=== PATIENT | female | born 1980 | race Caucasian/White ===

== ENCOUNTER 2024-03-02 10:36 | Emergency (ER) | payer OTHER ==
[~2024-03-02] VITALS: Ht 167.6 cm; Wt 100.0 kg
[2024-03-02 11:13] VITALS: TEMP 98.3
[2024-03-02] MEDS ORDERED: LEVE10006 PO (11:22)
[2024-03-02] MEDS ORDERED: METO25 PO (11:22)
[2024-03-02] MEDS ORDERED: HYDR-4527 PO (11:22)
[2024-03-02] MEDS ORDERED: LEVO75 PO (11:22)
[2024-03-02] MEDS ORDERED: FLUC200T85 PO (11:22)
[2024-03-02] MEDS ORDERED: METF-1211 PO (11:22)
[2024-03-02] MEDS ORDERED: ATOR40TA71 PO (11:22)
[2024-03-02 12:07] LABS: EOSINOPHILS % (AUTO) 2.2 % (1.0-6.0); HEMATOCRIT 37.9 % (36-46); HEMOGLOBIN 12.6 g/dL (12.0-16.0); LYMPHOCYTES # (AUTO) 1.6 K/uL (1.0-4.8); LYMPHOCYTES % (AUTO) 27.4 % (22.0-44.0); MEAN CORPUSCULAR HEMOGLOBIN 26.9 pg (26.0-34.0); MEAN CORPUSCULAR HGB CONC 33.1 G/dL (31.0-37.0); MEAN CORPUSCULAR VOLUME 81 fL (80-100); MONOCYTES # (AUTO) 0.5 K/uL (0.1-1.0); MONOCYTES % (AUTO) 8.1 % (2.0-9.0); NEUTROPHILS # (AUTO) 3.6 K/uL (1.8-7.7); NEUTROPHILS % (AUTO) 61.3 % (40.0-70.0); PLATELET COUNT (AUTO) 325 K/uL (150-450); RED BLOOD CELL COUNT(AUTO) 4.68 MIL/uL (4.00-5.20); RED CELL DISTRIBUTION WIDTH 14.4 % (11.5-14.5); WHITE BLOOD COUNT (AUTO) 5.9 K/uL (4.5-11.0)
[2024-03-02 12:17] LABS: ANION GAP 7 mmol/L (8-16); CALCIUM, TOTAL 8.8 mg/dL (8.8-10.5); CARBON DIOXIDE 31 mmol/L (22-29); CHLORIDE 101 mmol/L (98-107); CREATININE 0.64 mg/dL (0.60-1.30); GLOMERULAR FILTR. RATE CALC > 60 mL/min (>60); GLUCOSE,RANDOM 95 mg/dL (70-110); POTASSIUM 4.1 mmol/L (3.5-5.1); SODIUM SERUM 139 mmol/L (136-145); UREA NITROGEN, BLOOD 15 mg/dL (7-18)
[2024-03-02 12:18] LABS: LIPASE 48 U/L (16-77)
[2024-03-02 12:33] LABS: APPEARANCE,URINE CLEAR (CLEAR); BILIRUBIN,URINE NEGATIVE (NEGATIVE); COLOR,URINE LIGHT YELLOW (YELLOW); GLUCOSE, URINE (UA) NEGATIVE (NEGATIVE); KETONES,URINE NEGATIVE (NEGATIVE); LEUKOCYTE ESTERASE ,URINE MODERATE (NEGATIVE); NITRATE,URINE NEGATIVE (NEGATIVE); OCCULT BLOOD,URINE NEGATIVE (NEGATIVE); PROTEIN,URINE NEGATIVE (NEGATIVE); SPECIFIC GRAVITIY, URINE 1.017 (1.003-1.030); UROBILINOGEN,URINE <=1.0 mg/dL (<=1.0)
[2024-03-02 12:42] LABS: BACTERIA,URINE Few /HPF (None Seen); RBC,URINE 0-2 /HPF (0-2); SQUAMOUS EPITHELIAL CELL,UR Few /LPF (None Seen)
[2024-03-02] MEDS: LORazepam 2 MG/ML VIAL IM ONE (12:44)
[2024-03-02] MEDS: KETOROLAC TROMETHAMINE 60 MG/2 ML VIAL IM ONE (12:45)
[2024-03-02] MEDS: ONDANSETRON 4 MG TABLET PO ONE (12:56)
[2024-03-02] MEDS ORDERED: GABA-1181 PO (15:02)
[2024-03-02 15:05] VITALS: BP 126/70; PULSE 81; RESP 18; O2SAT 98
== END 2024-03-02 15:12 | disposition home or self-care (01) ==
LOC: EMS 10:36
DX: G40.909 Epilepsy, unspecified, not intractable, without status epilepticus (principal); R51.9 Headache, unspecified; E11.9 Type 2 diabetes mellitus without complications; I10 Essential (primary) hypertension; F15.90 Other stimulant use, unspecified, uncomplicated; Z88.0 Allergy status to penicillin; Z88.1 Allergy status to other antibiotic agents; Z91.148 Patient's other noncompliance with medication regimen for other reason
CPT/HCPCS: 99285; 70450; 80048; 81001; 82962; 83690; 85025; 87086; 36415; 96372; J1885; J2060

== ENCOUNTER 2024-12-20 19:02 | Emergency (ER) | payer OTHER ==
[~2024-12-20] VITALS: Ht 167.6 cm; Wt 72.7 kg
[~2024-12-20 19:02] MED LIST: ATOR40TA71 PO; BUSP10TA3 PO; FERR325T23 PO; FREM225A SQ; GABA-1181 PO; HYDR25TA82 PO; LEVE750T10 PO; LEVO50TA11 PO; LEVO88TA7 PO; LORA10TA7 PO; METF-444 PO; METO25 PO; NAPR-1196 PO; SERT-439 PO; TIRZ10PE3 SQ; TRAZ-252 PO
[2024-12-20 19:04] VITALS: TEMP 98
[2024-12-20 21:28] LABS: PLATELET COUNT (AUTO) 202 K/uL (150-450); RED BLOOD CELL COUNT(AUTO) 3.81 MIL/uL (4.00-5.20); RED CELL DISTRIBUTION WIDTH 14.8 % (11.5-14.5); WHITE BLOOD COUNT (AUTO) 5.4 K/uL (4.5-11.0)
[2024-12-20 21:39] LABS: CALCIUM, TOTAL 8.3 mg/dL (8.8-10.5); CREATININE 0.44 mg/dL (0.60-1.30); GLOMERULAR FILTR. RATE CALC > 60 mL/min (>60); GLUCOSE,RANDOM 100 mg/dL (70-110); SODIUM SERUM 140 mmol/L (136-145); UREA NITROGEN, BLOOD 9 mg/dL (7-18)
[2024-12-20] MEDS: POTASSIUM CHLORIDE 20 MEQ ER TABLET PO ONE (23:55)
[2024-12-21 01:08] VITALS: BP 128/79; PULSE 88; RESP 16; O2SAT 100
== END 2024-12-21 04:36 | disposition home or self-care (01) ==
LOC: EMS 19:02
DX: F41.9 Anxiety disorder, unspecified (principal); R55 Syncope and collapse; G40.909 Epilepsy, unspecified, not intractable, without status epilepticus; E87.6 Hypokalemia; E11.9 Type 2 diabetes mellitus without complications; I10 Essential (primary) hypertension; F15.90 Other stimulant use, unspecified, uncomplicated; Z88.0 Allergy status to penicillin; Z88.1 Allergy status to other antibiotic agents; Z79.899 Other long term (current) drug therapy
CPT/HCPCS: 99283; 80048; 84703; 85025; 36415; G0480